=== PATIENT | female | born 1945 | race Caucasian/White ===

== ENCOUNTER 2017-01-13 14:58 | Emergency (ER) | payer OTHER ==
[~2017-01-13] VITALS: Ht 165.1 cm; Wt 66.0 kg
[~2017-01-13 14:58] MED LIST: ASPI81TA28 PO; LEVO112T4 PO; LSN20 PO
[2017-01-13 15:15] VITALS: BP 120/58; PULSE 67; TEMP 36.3; O2SAT 98; Ht 165.1 cm; Wt 66.0 kg
== END 2017-01-13 16:16 | disposition left against medical advice (07) ==
LOC: C.EDB 15:00
DX: R55 Syncope and collapse (principal)